=== PATIENT | female | born 1970 | race Hispanic/Latino ===

== ENCOUNTER 2018-03-30 23:43 | Emergency (ER) | payer MEDICAID ==
[2018-03-31 00:20] LABS: APPEARANCE,URINE Cloudy (CLEAR); BILIRUBIN,URINE Negative (NEGATIVE); COLOR,URINE Yellow (YELLOW); GLUCOSE, URINE (UA) Negative (NEGATIVE); KETONES,URINE Trace mg/dL (NEGATIVE); LEUKOCYTE ESTERASE ,URINE Moderate (NEGATIVE); NITRATE,URINE Negative (NEGATIVE); OCCULT BLOOD,URINE Large (NEGATIVE); PH,URINE 5.5 (5.0-8.0); PROTEIN,URINE Trace (NEGATIVE); UROBILINOGEN,URINE 0.2 mg/dL (0.2-1.0)
[2018-03-31 00:27] LABS: BASOPHILS % (AUTO) 0.3 % (0.0-5.0); EOSINOPHILS % (AUTO) 0.1 % (0.0-8.0); HEMATOCRIT 39.5 % (36-48); LYMPHOCYTES % (AUTO) 19.7 % (21.0-51.0); MEAN CORPUSCULAR HEMOGLOBIN 29.6 pg (27.0-33.0); MEAN CORPUSCULAR HGB CONC 33.4 g/dL (32.0-36.0); MEAN CORPUSCULAR VOLUME 88.5 fL (79-99); NEUTROPHILS % (AUTO) 73.9 % (40.0-77.0); PLATELET COUNT (AUTO) 343 K/uL (130-400); RED BLOOD CELL COUNT(AUTO) 4.46 MIL/uL (4.00-5.50); RED CELL DISTRIBUTION WIDTH 15.2 % (11.0-15.5); WHITE BLOOD COUNT (AUTO) 5.9 K/uL (4.8-10.8)
[2018-03-31 00:33] LABS: CREATININE 0.7 mg/dL (0.5-1.5); POTASSIUM 3.2 mmol/L (3.5-5.1)
[2018-03-31 00:34] LABS: BACTERIA,URINE Rare /HPF (None Seen); MUCUS,URINE Many LPF (None Seen); SQUAMOUS EPITHELIAL CELL,UR Moderate /HPF (0-2)
[2018-03-31] MEDS ORDERED: SODIUM CHLORIDE 0.9% 1000ML 1,000 ML IV ONE (00:35)
[2018-03-31 00:37] LABS: ALBUMIN 4.1 g/dL (3.5-5.0); BILIRUBIN,TOTAL 0.3 mg/dL (0.2-1.0); TOTAL PROTEIN, SERUM 8.8 g/dL (6.0-8.3)
[2018-03-31 02:20] LABS: INR 1.01 (0.85-1.15); PARTIAL THROMBOPLASTIN TIME 25.8 SEC (26.3-35.5); PROTHROMBIN TIME 10.6 SEC (9.6-11.6)
[2018-03-31] MEDS ORDERED: NITROFURANTOIN MONOHYD/M-CRYST 100 MG CAPSULE PO ONE (02:53)
== END 2018-03-31 04:03 | disposition home or self-care (01) ==
LOC: EDH 23:43
DX: N39.0 Urinary tract infection, site not specified (principal); M06.9 Rheumatoid arthritis, unspecified; M79.7 Fibromyalgia; R07.89 Other chest pain; M19.90 Unspecified osteoarthritis, unspecified site; R79.1 Abnormal coagulation profile; Z88.0 Allergy status to penicillin; Z88.1 Allergy status to other antibiotic agents; Z88.2 Allergy status to sulfonamides; Z88.6 Allergy status to analgesic agent; Z88.8 Allergy status to other drugs, medicaments and biological substances; Z91.010 Allergy to peanuts
CPT/HCPCS: 36415; 71045; 80053; 81001; 84484; 85025; 85378; 85610; 85730; 93005; 93970; 99285; J7030

== ENCOUNTER 2018-11-23 17:23 | Emergency (ER) | payer MEDICAID | END 2018-11-23 18:05 | disposition home or self-care (01) | LOC: EDH 17:23 | DX: T78.49XA Other allergy, initial encounter (principal); M19.90 Unspecified osteoarthritis, unspecified site; M06.9 Rheumatoid arthritis, unspecified; M79.7 Fibromyalgia; Z88.1 Allergy status to other antibiotic agents; Z88.0 Allergy status to penicillin; Z91.010 Allergy to peanuts; Z88.6 Allergy status to analgesic agent; Z88.2 Allergy status to sulfonamides; Z88.5 Allergy status to narcotic agent; Z88.8 Allergy status to other drugs, medicaments and biological substances; X58.XXXA Exposure to other specified factors, initial encounter | CPT/HCPCS: 99281 ==

== ENCOUNTER 2023-05-19 18:31 | Emergency (ER) | payer MEDICAID ==
[~2023-05-19] VITALS: Ht 162.6 cm; Wt 46.7 kg
[~2023-05-19 18:31] MED LIST: ACET-2743 PO; CYAN50009 PO; LACT10SO9 PO; MEGACE PO; ONDA-105 PO; ONDA8TAB12 PO
[2023-05-19 19:12] VITALS: BP 161/88; PULSE 101; RESP 18
== END 2023-05-19 20:43 | disposition home or self-care (01) ==
LOC: EDH 18:31
DX: C56.9 Malignant neoplasm of unspecified ovary (principal); Z88.0 Allergy status to penicillin; Z88.1 Allergy status to other antibiotic agents; Z88.2 Allergy status to sulfonamides; Z88.6 Allergy status to analgesic agent; Z88.8 Allergy status to other drugs, medicaments and biological substances; Z79.899 Other long term (current) drug therapy; Z90.710 Acquired absence of both cervix and uterus; Z90.49 Acquired absence of other specified parts of digestive tract; Z98.890 Other specified postprocedural states

== ENCOUNTER 2023-09-23 00:41 | Emergency (ER) | payer MEDICAID ==
[~2023-09-23 00:41] MED LIST changes: -ACET-2743 PO; +AMLO-257 PO; +CALC-1099 PO; -CYAN50009 PO; +HYDR-4060 PO; +LACT10SO5 PO; -LACT10SO9 PO; +LIDO PO; -MEGACE PO; +MEGE400O39 PO; +NYSTATIN PO; -ONDA-105 PO; -ONDA8TAB12 PO; +SIME125T3 PO; +[UNRECOGNIZED DRUG - OTHER] PO
[2023-09-23] MEDS: ONDANSETRON 4MG INJ IVP ONE (03:08)
[2023-09-23] MEDS: 0.9%NACL 1000ML 1,000 ML IV ONE (03:08)
[2023-09-23 04:54] VITALS: BP 101/56; PULSE 99; RESP 18; O2SAT 95
[2023-09-24] MEDS ORDERED: LETR2.5T7 PO (22:35)
== END 2023-09-23 04:57 | disposition home or self-care (01) ==
LOC: EDH 00:41
DX: C56.9 Malignant neoplasm of unspecified ovary (principal); I10 Essential (primary) hypertension; Z88.0 Allergy status to penicillin; Z88.1 Allergy status to other antibiotic agents; Z88.2 Allergy status to sulfonamides; Z88.6 Allergy status to analgesic agent; Z90.49 Acquired absence of other specified parts of digestive tract; Z90.710 Acquired absence of both cervix and uterus
CPT/HCPCS: 99284; 96374; J7030; J2405